=== PATIENT | female | born 1955 | race Hispanic/Latino ===

== ENCOUNTER 2020-11-17 10:17 | Inpatient (IN) | payer MEDICARE ==
--- NOTE | 2020-11-17 11:27 | Emergency Department Report ---
ED General Adult HPI - General Chief complaint: Chest Pain Stated complaint: CHESTPAIN Time Seen by Provider: 11/17/20 10:38 Source: EMS Mode of arrival: Wheelchair Limitations: No Limitations - History of Present Illness Initial comments: Patient presents with chest pain. She states that she was at dialysis when the chest pain started. It is described as a heaviness "like an elephant sitting on her chest." She has heart disease. She has renal failure. She was last cathed with a bypass at [facility]. She still sees cardiology, but has not required repeat intervention. There is no recent history of travel or trauma. She states that she does feel dyspneic. She has been nauseous. She has had pain like this before when her heart has "acted up." There is no pain or swelling in the legs out of the ordinary. They cut her dialysis treatment short because of the pain itself. This does seem to be worse with exertion. It is not pleuritic in nature. - Related Data Home Medications Medication Instructions Recorded Confirmed Last Taken Aspirin [Aspirin BABY CHEW TAB] 162 mg PO QDAY 12/27/15 12/27/15 Unknown AtorvaSTATin [Lipitor] 20 mg PO QHS 12/27/15 12/27/15 Unknown Cetirizine HCl [All Day Allergy] 10 mg PO QDAY 12/27/15 12/27/15 Unknown Etanercept [Enbrel] 50 mg SQ QWEEK 12/27/15 12/27/15 Unknown Glucosam/Chondr/Collagn/Hyalur 1 each PO QDAY 12/27/15 12/27/15 Unknown [Glucosamine & Chondroitin Cap] Insulin Aspart Prot/Aspart(Nf) 0 units SQ ACHS 12/27/15 12/27/15 Unknown [NovoLOG Mix 70/30 VIAL] Insulin Glargine [Lantus VIAL] 20 units SQ QHS 12/27/15 12/27/15 Unknown Mirtazapine [Remeron 15mg TAB] 15 mg PO QHS 12/27/15 12/27/15 Unknown Multivitamin Tab [Multiple Vitamin 1 each PO QDAY 12/27/15 12/27/15 Unknown TAB (Theragran)] [place]-3S/Dha/Epa/Fish Oil [Fish 1 each PO QDAY 12/27/15 12/27/15 Unknown Oil 1,200 mg Softgel] Omeprazole 40 mg PO QDAY 12/27/15 12/27/15 Unknown Potassium Chloride [K-Dur] 10 meq PO Q48HR 12/27/15 12/27/15 Unknown Rifaximin [Xifaxan] 1,100 mg PO QDAY 12/27/15 12/27/15 Unknown Spironolactone [Aldactone] 50 mg PO BID 12/27/15 12/27/15 Unknown Torsemide [Demadex] 20 mg PO QDAY 12/27/15 12/27/15 Unknown amLODIPine 10 mg PO DAILY 12/27/15 12/27/15 Unknown carvediloL [Coreg] 12.5 mg PO BID 12/27/15 12/27/15 Unknown hydrALAZINE [Apresoline TAB] 50 mg PO QDAY 12/27/15 12/27/15 Unknown Previous Rx's Medication Instructions Recorded Last Taken Type Gabapentin 300 mg PO QPM #30 cap 12/30/15 Unknown Rx Allergies Allergy/AdvReac Type Severity Reaction Status Date / Time codeine Allergy Hives Verified 11/17/20 10:33 ED Review of Systems ROS: Stated complaint: CHESTPAIN Other details as noted in HPI Comment: All other systems reviewed and negative Constitutional: denies: fever Eyes: denies: eye pain ENT: denies: throat pain Respiratory: denies: cough Cardiovascular: as per HPI Endocrine: denies: unexplained weight loss Gastrointestinal: nausea. denies: abdominal pain Musculoskeletal: denies: back pain Skin: denies: rash Neurological: denies: headache Hematological/Lymphatic: denies: easy bruising ED Past Medical Hx - Past Medical History Hx Hypertension: Yes Hx Congestive Heart Failure: Yes Hx Diabetes: Yes Hx Renal Disease: Yes Hx Asthma: No Hx COPD: No - Surgical History Hx Coronary Stent: Yes Hx Open Heart Surgery: Yes Additional Surgical History: Back surgery - Family History Family history: hypertension - Social History Smoking Status: Never Smoker - Medications Home Medications: Home Medications Medication Instructions Recorded Confirmed Last Taken Type Aspirin [Aspirin BABY CHEW TAB] 162 mg PO QDAY 12/27/15 12/27/15 Unknown History AtorvaSTATin [Lipitor] 20 mg PO QHS 12/27/15 12/27/15 Unknown History Cetirizine HCl [All Day Allergy] 10 mg PO QDAY 12/27/15 12/27/15 Unknown History Etanercept [Enbrel] 50 mg SQ QWEEK 12/27/15 12/27/15 Unknown History Glucosam/Chondr/Collagn/Hyalur 1 each PO QDAY 12/27/15 12/27/15 Unknown History [Glucosamine & Chondroitin Cap] Insulin Aspart Prot/Aspart(Nf) 0 units SQ ACHS 12/27/15 12/27/15 Unknown History [NovoLOG Mix 70/30 VIAL] Insulin Glargine [Lantus VIAL] 20 units SQ QHS 12/27/15 12/27/15 Unknown History Mirtazapine [Remeron 15mg TAB] 15 mg PO QHS 12/27/15 12/27/15 Unknown History Multivitamin Tab [Multiple Vitamin 1 each PO QDAY 12/27/15 12/27/15 Unknown History TAB (Theragran)] [place]-3S/Dha/Epa/Fish Oil [Fish 1 each PO QDAY 12/27/15 12/27/15 Unknown History Oil 1,200 mg Softgel] Omeprazole 40 mg PO QDAY 12/27/15 12/27/15 Unknown History Potassium Chloride [K-Dur] 10 meq PO Q48HR 12/27/15 12/27/15 Unknown History Rifaximin [Xifaxan] 1,100 mg PO QDAY 12/27/15 12/27/15 Unknown History Spironolactone [Aldactone] 50 mg PO BID 12/27/15 12/27/15 Unknown History Torsemide [Demadex] 20 mg PO QDAY 12/27/15 12/27/15 Unknown History amLODIPine 10 mg PO DAILY 12/27/15 12/27/15 Unknown History carvediloL [Coreg] 12.5 mg PO BID 12/27/15 12/27/15 Unknown History hydrALAZINE [Apresoline TAB] 50 mg PO QDAY 12/27/15 12/27/15 Unknown History Gabapentin 300 mg PO QPM #30 cap 12/30/15 Unknown Rx ED Physical Exam - General Limitations: No Limitations, Other ( Pulse ox is noted to normal at 90%. She is not hypoxic.) General appearance: alert, in no apparent distress, anxious, obese - Head Head exam: Present: atraumatic, normocephalic, normal inspection - Eye Eye exam: Present: normal appearance, EOMI. Absent: scleral icterus - ENT ENT exam: Present: normal exam, normal orophraynx, normal external ear exam - Neck Neck exam: Present: normal inspection. Absent: meningismus - Respiratory Respiratory exam: Present: rales ( Bilaterally). Absent: respiratory distress - Cardiovascular Cardiovascular Exam: Present: regular rate, normal rhythm - GI/Abdominal GI/Abdominal exam: Present: soft. Absent: tenderness - Extremities Exam Extremities exam: Present: normal capillary refill. Absent: pedal edema - Back Exam Back exam: Absent: CVA tenderness (R), CVA tenderness (L) - Neurological Exam Neurological exam: Present: alert, oriented X3. Absent: motor sensory deficit - Psychiatric Psychiatric exam: Present: normal affect, normal mood - Skin Skin exam: Present: warm, dry - Other Other exam information: patient has a dialysis catheter in the right anterior chest. ED Course Vital Signs 11/17/20 11/17/20 11/17/20 10:31 11:51 11:52 Temperature 98.2 F Pulse Rate 76 81 Respiratory 18 20 Rate Blood Pressure 148/52 147/58 [Right] O2 Sat by Pulse 98 100 100 Oximetry - Reevaluation(s) Reevaluation #1: 11/17/20 11:27 Labs and x-ray were ordered. Medications were ordered. Reevaluation #2: 11/17/20 12:58 Case was discussed with Dr. Reno and Dr. Chilel. Admission was placed. Patient does not have evidence of STEMI. She does have an elevated troponin. Given her renal function, this could be baseline but we do not have old labs to know. She is also pancytopenic. ED Medical Decision Making - Lab Data Result diagrams: 11/17/20 11:54 11/17/20 11:54 - EKG Data -: EKG Interpreted by Me EKG shows normal: sinus rhythm Rate: normal - EKG Data When compared to previous EKG there are: previous EKG unavailable 11/17/20 12:58 Patient has normal intervals. She does have T wave inversions in 1 and aVL with poor R wave progression. I believe these are old, but I do not have an old EKG for comparison. QRS and QTc are normal. - Radiology Data Radiology results: report reviewed - Medical Decision Making Patient present with chest pain shortness of breath. She was found to have an elevated troponin and elevated BNP. We do not have all labs. She does have pancytopenia. I suspect some of these lab values are chronic in nature. Regardless, she has chest pain with shortness of breath and an elevated troponin. She will be admitted for further observation and management. She does not appear to be septic or toxic. There is no clinical evidence that would suggest pneumonia or pneumothorax. She does not have a fever or cough or myalgias that would suggest coronavirus. Critical Care Time: No Critical care attestation.: If time is entered above; I have spent that time in minutes in the direct care of this critically ill patient, excluding procedure time. ED Disposition Clinical Impression: Substernal chest pain, ESRD (end stage renal disease) on dialysis, Pancytopenia, Elevated troponin Disposition: 09 ADMITTED INPATIENT Is pt being admited?: Yes Does the pt Need Aspirin: No Condition: Stable Instructions: Nonspecific Chest Pain, Adult
[2020-11-17] MEDS ORDERED: NITROGLYCERIN 0.4 MG TAB SUBL SL PRN (11:28)
[2020-11-17] MEDS ORDERED: ASPIRIN 81 MG TAB CHEW PO ONE (11:28)
[2020-11-17] MEDS ORDERED: ONDANSETRON 4 MG/2 ML INJ IV ONE (11:30)
[2020-11-17] MEDS ORDERED: ONDANSETRON 4 MG/2 ML INJ ONE (11:30)
[2020-11-17 12:17] LABS: Mean Corpuscular HGB Conc 35 % (30-34); Mean Corpuscular Volume 101 fl (79-97); Red Blood Count 1.98 M/mm3 (3.65-5.03); Red Cell Distribution Width 15.6 % (13.2-15.2)
[2020-11-17 12:24] LABS: Calcium 8.6 mg/dL (8.4-10.2)
[2020-11-17 12:29] LABS: Albumin 3.4 g/dL (3.9-5); Bilirubin,Direct 0.2 mg/dL (0-0.2)
[2020-11-17 12:38] LABS: Platelet Count 65 K/mm3 (140-440)
--- NOTE | 2020-11-17 12:55 | XRay Report ---
CHEST 2 VIEWS INDICATION / CLINICAL INFORMATION: pain. COMPARISON: 12/27/15 FINDINGS: SUPPORT DEVICES: Right PermCath projects over the right atrium. HEART / MEDIASTINUM: Stable. Median sternotomy wires are unchanged. LUNGS / PLEURA: No significant pulmonary or pleural abnormality. No pneumothorax. ADDITIONAL FINDINGS: No significant additional findings. IMPRESSION: 1. No acute findings. Signer Name: Gonzalez Ross MD Signed: 11/17/2020 12:50 PM Workstation Name: [id number]
[2020-11-17 13:27] LABS: Chol/HDL Ratio 6.03 %
--- NOTE | 2020-11-17 13:28 | Consultation ---
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 Pain started during dialysis. Pt describes pain as sub-sternal pressure radiating across both the left and right sides of her chest anteriorly. Pain also radiates to her left shoulder at times. No aggravating factors. Minimal relief noted with SL NTG. No additional relieving factors. Pt also reports associated SOB, dizziness, and nausea. No cough or recent fever/chills. Pt has been vaccinated against COVID-19 (received both doses of [place] vaccine). Pt has chronically elevated troponins in the setting of ESRD, ranging from 0.2-0.5 on outpatient labs. ECG reveals no acute ischemic changes. Of note, pt was seen at [facility] for chest pain and discharged 11/15/2020 with a new prescription for Ranexa, as well as Case Mgmt assistance with obtaining meds from a financial perspective. It is unclear whether or not she has started taking Ranexa. Recent cardiac workup as follows. Echo 03/04/2020 - EF 55-60%, grade 2 diastolic dysfxn. LHC 07/20/2020 - patent LM, 60% prox LAD, 100% mid LAD stent, patent LUIS-LAD less than 2mm, patent prox Cfx, 80% prox OM1 small caliber, 100% mid Cfx, patent SVG- OM feeding small caliber OM2, 100% prox RCA stent, patent SVG-PDA feeding small patent PDA and PLV, normal LV fxn. Lexiscan stress MPI 11/2019 - moderate size predominantly fixed apical defect consistent with prior myocardial infarction, no evidence of a significant degree of reversible ischemia. Past History Past Medical History: CAD, diabetes, dialysis, ESRD, heart failure, hypertension, liver disease, pulmonary embolism, stroke Past Surgical History: CABG, PTCA Social history: denies: smoking, alcohol abuse Family history: CAD, diabetes, hypertension, stroke Medications and Allergies Allergies Allergy/AdvReac Type Severity Reaction Status Date / Time codeine Allergy Hives Verified 11/17/20 10:33 Home Medications Medication Instructions Recorded Confirmed Last Taken Type Aspirin [Aspirin BABY CHEW TAB] 162 mg PO QDAY 12/27/15 12/27/15 Unknown History AtorvaSTATin [Lipitor] 20 mg PO QHS 12/27/15 12/27/15 Unknown History Cetirizine HCl [All Day Allergy] 10 mg PO QDAY 12/27/15 12/27/15 Unknown History Etanercept [Enbrel] 50 mg SQ QWEEK 12/27/15 12/27/15 Unknown History Glucosam/Chondr/Collagn/Hyalur 1 each PO QDAY 12/27/15 12/27/15 Unknown History [Glucosamine & Chondroitin Cap] Insulin Aspart Prot/Aspart(Nf) 0 units SQ ACHS 12/27/15 12/27/15 Unknown History [NovoLOG Mix 70/30 VIAL] Insulin Glargine [Lantus VIAL] 20 units SQ QHS 12/27/15 12/27/15 Unknown History Mirtazapine [Remeron 15mg TAB] 15 mg PO QHS 12/27/15 12/27/15 Unknown History Multivitamin Tab [Multiple Vitamin 1 each PO QDAY 12/27/15 12/27/15 Unknown History TAB (Theragran)] [place]-3S/Dha/Epa/Fish Oil [Fish 1 each PO QDAY 12/27/15 12/27/15 Unknown History Oil 1,200 mg Softgel] Omeprazole 40 mg PO QDAY 12/27/15 12/27/15 Unknown History Potassium Chloride [K-Dur] 10 meq PO Q48HR 12/27/15 12/27/15 Unknown History Rifaximin [Xifaxan] 1,100 mg PO QDAY 12/27/15 12/27/15 Unknown History Spironolactone [Aldactone] 50 mg PO BID 12/27/15 12/27/15 Unknown History Torsemide [Demadex] 20 mg PO QDAY 12/27/15 12/27/15 Unknown History amLODIPine 10 mg PO DAILY 12/27/15 12/27/15 Unknown History carvediloL [Coreg] 12.5 mg PO BID 12/27/15 12/27/15 Unknown History hydrALAZINE [Apresoline TAB] 50 mg PO QDAY 12/27/15 12/27/15 Unknown History Gabapentin 300 mg PO QPM #30 cap 12/30/15 Unknown Rx Active Meds: Active Medications Nitroglycerin (Nitroglycerin 0.4 Mg Tab Subl) 0.4 mg SL .Q5MIN PRN PRN Reason: Chest Pain Last Admin: 11/17/20 11:49 Dose: 0.4 mg Documented by: Review of Systems Constitutional: no fever, no chills Ears, nose, mouth and throat: no nasal congestion, no sore throat Cardiovascular: chest pain, shortness of breath, no palpitations, no edema, no syncope, no lightheadedness, no claudication Respiratory: shortness of breath, no cough Gastrointestinal: nausea, no abdominal pain, no vomiting Genitourinary Female: no pelvic pain, no flank pain, no dysuria Musculoskeletal: no neck stiffness, no neck pain Integumentary: no rash, no wounds Neurological: other (dizziness), no head injury, no paralysis, no weakness, no numbness, no tingling, no seizures, no syncope, no vertigo, no headaches Endocrine: no cold intolerance, no heat intolerance Hematologic/Lymphatic: no easy bruising, no easy bleeding Allergic/Immunologic: no anaphylaxis Physical Examination Last Vital Signs Temp 98.2 F 11/17/20 10:31 Pulse 68 11/17/20 14:12 Resp 19 11/17/20 14:12 BP 136/55 11/17/20 14:12 Pulse Ox 100 11/17/20 14:12 General appearance: no acute distress HEENT: Positive: EOMI, Normocephaly, Mucus Membranes Moist Neck: Positive: neck supple, trachea midline. Negative: JVD/HJR Cardiac: Positive: Reg Rate and Rhythm, S1/S2. Negative: Audible Murmur Lungs: Positive: Decreased Breath Sounds Neuro: Positive: Grossly Intact Abdomen: Positive: Soft. Negative: Tender Skin: Negative: Rash Musculoskeletal: No Pain Extremities: Present: upper extr. pulses, lower extr. pulses. Absent: edema Results 11/17/20 11:54 11/17/20 11:54 Cardiac Enzymes 11/17/20 Range/Units 11:54 AST 23 (5-40) units/L CBC 11/17/20 Range/Units 11:54 WBC 2.2 L (4.5-11.0) K/mm3 RBC 1.98 L (3.65-5.03) M/mm3 Hgb 7.0 L (10.1-14.3) gm/dl Hct 20.0 L (30.3-42.9) % Plt Count 65 L (140-440) K/mm3 Comprehensive Metabolic Panel 11/17/20 11/17/20 Range/Units 11:54 11:54 Sodium 137 (137-145) mmol/L Potassium 4.1 (3.6-5.0) mmol/L Chloride 95.4 L (98-107) mmol/L Carbon Dioxide 28 (22-30) mmol/L BUN 27 H (7-17) mg/dL Creatinine 3.5 H (0.6-1.2) mg/dL Glucose 200 H (65-100) mg/dL Calcium 8.6 (8.4-10.2) mg/dL Direct Bilirubin 0.2 (0-0.2) mg/dL Indirect Bilirubin 0.5 mg/dL AST 23 (5-40) units/L ALT 14 (7-56) units/L Alkaline Phosphatase 149 H (35-129) units/L Total Protein 7.0 (6.3-8.2) g/dL Albumin 3.4 L (3.9-5) g/dL - Imaging and Cardiology Echo: report reviewed (03/04/2020 - EF 55-60%, grade 2 diastolic dysfxn) Cardiac cath: report reviewed (07/20/2020 revealed patent LM, 60% prox LAD, 100% mid LAD stent, patent LUIS-LAD less than 2mm, patent prox Cfx, 80% prox OM1 small caliber, 100% mid Cfx, patent SVG-OM feeding small caliber OM2, 100% prox RCA stent, patent SVG-PDA feeding small patent PDA and PLV, normal LV fxn) EKG: report reviewed, image reviewed - EKG Interpretation EKG: no acute changes EKG interpretations - EKG Sinus rhythms and dysrhythmias: sinus rhythm Repolarization changes or abnormalities: nonspecific abnormality, ST segment, and/or T wave Assessment and Plan Chest Pain / NSTEMI -Recent LHC at [facility] 07/20/2020 revealed patent LM, 60% prox LAD, 100% mid LAD stent, patent LUIS-LAD less than 2mm, patent prox Cfx, 80% prox OM1 small caliber, 100% mid Cfx, patent SVG-OM feeding small caliber OM2, 100% prox RCA stent, patent SVG-PDA feeding small patent PDA and PLV, normal LV fxn -Trend cardiac enzymes -No heparin gtt due to chronic thrombocytopenia -Conservative medical mgmt recommended -Resume daily bASA -Not on statin due to liver disease -Resume Coreg and increase to 6.25mg BID as BP permits -Resume Imdur 60mg daily -Resume Ranexa 500mg BID (may increase if needed) CAD s/p CABG x 3 in 2009, PCI in 2008 -Daily bASA -Not on statin due to liver disease -Continue BB H/o Provoked PE (02/2020) -S/p biliary stent, was taken off Eliquis 06/09/2020 given chronic thrombocytopenia and liver disease -CTA chest 05/27/2020 @ [facility], [facility] revealed resolution of PE ESRD on HD -Volume optimization via HD Chronic HFpEF HTN -BP stable DM2 -Mgmt per Primary Liver Cirrhosis // YOUSIF -S/p TIPS 2013 Chronic Pancytopenia H/o MDS -S/p chemo 2015 H/o CVA (2016) PFO -Via [facility] 06/2020 H/o MV Endocarditis with Septic Emboli (2017) H/o Subclavian Steal Syndrome Chronically Prolonged QTc -On Remeron as an outpatient -501ms on ECG this admission (no change from previous) Pt seen in conjunction with Dr. Puckett, who agrees with the assessment and plan of care. - Patient Problems (1) Chest pain Current Visit: Yes Status: Acute (2) NSTEMI (non-ST elevated myocardial infarction) Current Visit: Yes Status: Acute (3) CAD (coronary artery disease) Current Visit: Yes Status: Chronic Qualifiers: Coronary Disease-Associated Artery/Lesion type: [place] artery [place] vs. transplanted heart: [place] heart (4) S/P CABG x 3 Current Visit: Yes Status: Chronic (5) Stented coronary artery Current Visit: Yes Status: Chronic (6) ESRD on hemodialysis Current Visit: Yes Status: Chronic (7) Hypertension Current Visit: Yes Status: Chronic Qualifiers: Hypertension type: primary hypertension Qualified Code(s): I10 - Essential (primary) hypertension (8) DM2 (diabetes mellitus, type 2) Current Visit: Yes Status: Chronic (9) Liver cirrhosis Current Visit: Yes Status: Chronic (10) Pancytopenia Current Visit: Yes Status: Chronic (11) History of pulmonary embolism Current Visit: Yes Status: Chronic (12) H/O: CVA (cerebrovascular accident) Current Visit: Yes Status: Chronic
--- NOTE | 2020-11-17 14:39 | History and Physical Report ---
History of Present Illness Chief complaint: My chest hurts History of present illness: 64 YO Female with CVA on Antiplatelet therapy, ESRD on HD(T,R,Sa), Cirrhosis, Chronic Thrombocytopenia, CAD S/P CABG, HTN, PE not taking therapeutic anticoagulation, DM, Obesity Hypoventilation Syndrome, HLD presents to ED for evaluation. Patient reports "my chest hurts". Patient states that she experienced a sudden onset of chest pain while at dialysis. Patient pain is 10/10, constant, crushing in nature, feels like "an elephant sitting on my chest", associated with shortness of breath. EMS was notified and upon arrival the patient was found to be in distress and subsequently transported to [facility] for further care and evaluation of the aforementioned symptoms. The patient was seen and evaluated in the emergency department. All lab and imaging studies reviewed. Patient found to have clinical symptoms as well as lab findings consistent with non-ST elevation IA, angina at rest, diastolic congestive heart failure, acute kidney injury. Cardiology team consulted in ED. Patient admitted to telemetry and initiated on ACS protocol. Patient denies fever, chills, palpitation, productive cough, skin rash, recent ill contacts, or known exposure to COVID-19. Patient has been fully vaccinated against COVID-19. Prior admission on 12/27/2015 reviewed. All medication listed at time of admission has been reconciled. Advanced care planning conducted in ED. Past History Past Medical History: CAD, diabetes, dialysis, ESRD, heart failure, hypertension, liver disease, pulmonary embolism, stroke Past Surgical History: CABG, PTCA Social history: denies: smoking, alcohol abuse Family history: CAD, diabetes, hypertension, stroke Medications and Allergies Allergies Allergy/AdvReac Type Severity Reaction Status Date / Time codeine Allergy Hives Verified 11/17/20 10:33 Home Medications Medication Instructions Recorded Confirmed Last Taken Type Aspirin [Aspirin BABY CHEW TAB] 162 mg PO QDAY 12/27/15 12/27/15 Unknown History AtorvaSTATin [Lipitor] 20 mg PO QHS 12/27/15 12/27/15 Unknown History Cetirizine HCl [All Day Allergy] 10 mg PO QDAY 12/27/15 12/27/15 Unknown History Etanercept [Enbrel] 50 mg SQ QWEEK 12/27/15 12/27/15 Unknown History Glucosam/Chondr/Collagn/Hyalur 1 each PO QDAY 12/27/15 12/27/15 Unknown History [Glucosamine & Chondroitin Cap] Insulin Aspart Prot/Aspart(Nf) 0 units SQ ACHS 12/27/15 12/27/15 Unknown History [NovoLOG Mix 70/30 VIAL] Insulin Glargine [Lantus VIAL] 20 units SQ QHS 12/27/15 12/27/15 Unknown History Mirtazapine [Remeron 15mg TAB] 15 mg PO QHS 12/27/15 12/27/15 Unknown History Multivitamin Tab [Multiple Vitamin 1 each PO QDAY 12/27/15 12/27/15 Unknown History TAB (Theragran)] [place]-3S/Dha/Epa/Fish Oil [Fish 1 each PO QDAY 12/27/15 12/27/15 Unknown History Oil 1,200 mg Softgel] Omeprazole 40 mg PO QDAY 12/27/15 12/27/15 Unknown History Potassium Chloride [K-Dur] 10 meq PO Q48HR 12/27/15 12/27/15 Unknown History Rifaximin [Xifaxan] 1,100 mg PO QDAY 12/27/15 12/27/15 Unknown History Spironolactone [Aldactone] 50 mg PO BID 12/27/15 12/27/15 Unknown History Torsemide [Demadex] 20 mg PO QDAY 12/27/15 12/27/15 Unknown History amLODIPine 10 mg PO DAILY 12/27/15 12/27/15 Unknown History carvediloL [Coreg] 12.5 mg PO BID 12/27/15 12/27/15 Unknown History hydrALAZINE [Apresoline TAB] 50 mg PO QDAY 12/27/15 12/27/15 Unknown History Gabapentin 300 mg PO QPM #30 cap 12/30/15 Unknown Rx Active Meds: Active Medications Nitroglycerin (Nitroglycerin 0.4 Mg Tab Subl) 0.4 mg SL .Q5MIN PRN PRN Reason: Chest Pain Last Admin: 11/17/20 11:49 Dose: 0.4 mg Documented by: Review of Systems Constitutional: no weight loss, no weight gain, no fever, no chills Ears, nose, mouth and throat: no ear pain, no ear discharge, no tinnitis, no decreased hearing, no nasal congestion Breasts: no change in shape, no swelling, no mass Cardiovascular: chest pain, shortness of breath, decreased exercise tolerance, no edema, no syncope Respiratory: no cough, no cough with sputum, no hemoptysis Gastrointestinal: no nausea, no vomiting, no diarrhea, no constipation Genitourinary Female: no pelvic pain, no flank pain, no dysuria, no urinary frequency, no urgency Rectal: no pain, no incontinence, no bleeding Musculoskeletal: no neck stiffness, no neck pain, no shooting arm pain, no arm numbness/tingling, no low back pain, no shooting leg pain Integumentary: no rash, no pruritis, no redness, no sores, no wounds Neurological: no head injury, no transient paralysis, no paralysis, no parathesias, no tingling, no seizures, no syncope Psychiatric: no anxiety, no change in sleep habits, no sleep disturbances, no insomnia, no hypersomnia Endocrine: no cold intolerance, no heat intolerance, no polyphagia, no polydipsia, no polyuria, no nocturia, no excessive sweating Hematologic/Lymphatic: no easy bruising, no easy bleeding, no lymphadenopathy Allergic/Immunologic: no allergic rhinitis, no wheezing, no persistent infections, no anaphylaxis Exam - Constitutional Vitals: Temp Pulse Resp BP Pulse Ox 98.2 F 68 19 136/55 100 11/17/20 10:31 11/17/20 14:12 11/17/20 14:12 11/17/20 14:12 11/17/20 14:12 General appearance: Present: mild distress, obese - EENT Eyes: Present: PERRL ENT: hearing intact, clear oral mucosa - Neck Neck: Present: supple, normal ROM - Respiratory Respiratory effort: normal Respiratory: bilateral: CTA - Cardiovascular Heart Sounds: Present: S1 & S2. Absent: rub, click - Extremities Extremities: pulses symmetrical, No edema Peripheral Pulses: within normal limits - Abdominal General gastrointestinal: Present: soft, non-tender, non-distended, normal bowel sounds Female genitourinary: Present: normal - Integumentary Integumentary: Present: clear, warm, dry - Musculoskeletal Musculoskeletal: generalized weakness - Psychiatric Psychiatric: appropriate mood/affect, intact judgment & insight - Neurologic Neurologic: CNII-XII intact, moves all extremities HEART Score - HEART Score Troponin: Troponin T 0.236 ng/mL (0.00-0.029) H* 11/17/20 11:54 Results - Labs CBC & Chem 7: 11/17/20 11:54 11/17/20 11:54 Labs: Abnormal lab results 11/17/20 11/17/20 11/17/20 Range/Units 11:54 11:54 11:54 WBC 2.2 L (4.5-11.0) K/mm3 RBC 1.98 L (3.65-5.03) M/mm3 Hgb 7.0 L (10.1-14.3) gm/dl Hct 20.0 L (30.3-42.9) % MCV 101 H (79-97) fl MCH 36 H (28-32) pg MCHC 35 H (30-34) % RDW 15.6 H (13.2-15.2) % Plt Count 65 L (140-440) K/mm3 Chloride 95.4 L (98-107) mmol/L BUN 27 H (7-17) mg/dL Creatinine 3.5 H (0.6-1.2) mg/dL Glucose 200 H (65-100) mg/dL Alkaline Phosphatase 149 H (35-129) units/L Troponin T 0.236 H* (0.00-0.029) ng/mL NT-Pro-B Natriuret Pep 19266 H (0-900) pg/mL Albumin 3.4 L (3.9-5) g/dL Triglycerides 166 H (2-149) mg/dL HDL Cholesterol 32 L (40-59) mg/dL Assessment and Plan - Patient Problems (1) NSTEMI (non-ST elevated myocardial infarction) Current Visit: Yes Status: Acute Plan to address problem: ACS protocol: Serial cardiac enzymes, EKG, telemetry monitoring, cardiology team consulted, further care and evaluation as per cardiology team. (2) Angina at rest Current Visit: Yes Status: Acute Plan to address problem: Chest pain protocol: Serial cardiac enzymes, EKG, will monitor telemetry, further care and evaluation as per cardiology team. (3) ESRD on hemodialysis Current Visit: Yes Status: Chronic Plan to address problem: Nephrology team consulted in ED, dialysis as per renal team. (4) Diastolic CHF Current Visit: Yes Status: Acute Qualifiers: Heart failure chronicity: acute Qualified Code(s): I50.31 - Acute diastolic (congestive) heart failure Plan to address problem: Strict I/O, monitor urine output every shift, daily weight, afterload reduction, blood pressure control, supplemental oxygen, pulse oximetry, cardiology team consulted. (5) DVT prophylaxis Current Visit: Yes Status: Acute Plan to address problem: SCDs bilateral lower extremities while in bed (6) Advance care planning Current Visit: Yes Status: Acute Plan to address problem: Disease education conducted, care plan discussed, diagnosis discussed, prognosis discussed, patient is full code, patient knowledges understanding and agreement with care plan, +30 minutes.
[2020-11-17] MEDS ORDERED: ALBUTEROL 2.5 MG/3 ML NEBU IH PRN (14:40)
[2020-11-17] MEDS ORDERED: ONDANSETRON 4 MG/2 ML INJ IV PRN (14:40)
[2020-11-17] MEDS ORDERED: traMADol 50 MG TAB PO PRN (14:40)
[2020-11-17] MEDS ORDERED: ACETAMINOPHEN 325 MG TAB PO PRN ×2 (14:40)
[2020-11-17] MEDS ORDERED: HYDROmorphone 1 MG/1 ML INJ IV PRN (14:40)
[2020-11-17] MEDS: GABAPENTIN 300 MG CAP PO SCH (18:30)
[2020-11-17] MEDS ORDERED: DEXTROSE 50% IN WATER (25GM) 50 ML SYRINGE IV PRN (19:10)
[2020-11-17] MEDS ORDERED: carvediloL 6.25 MG TAB PO SCH (22:00)
[2020-11-17] MEDS: RANOLAZINE ER 500 MG TAB 12HR PO SCH (23:42)
[2020-11-18] MEDS: INSULIN LISPRO 100 UNIT/ML SUB-Q SCH ×4 (00:30→17:44)
[2020-11-18] MEDS: oxyCODONE /ACETAMINOPHEN 5-325MG TAB PO PRN ×2 (03:32→12:51)
[2020-11-18] MEDS: carvediloL 12.5 MG TAB PO SCH ×3 (03:41→22:09)
[2020-11-18] MEDS: SPIRONOLACTONE 50 MG TAB PO SCH ×3 (03:41→22:09)
[2020-11-18] MEDS: MIRTAZAPINE 15 MG TAB PO SCH ×2 (03:42→22:09)
[2020-11-18 06:24] LABS: Mean Corpuscular HGB Conc 35 % (30-34); Mean Corpuscular Volume 103 fl (79-97); Red Blood Count 1.74 M/mm3 (3.65-5.03); Red Cell Distribution Width 15.7 % (13.2-15.2)
[2020-11-18 06:30] LABS: Hemoglobin 6.2 gm/dl (10.1-14.3)
[2020-11-18 06:35] LABS: Hematocrit 17.9 % (30.3-42.9); Platelet Count 64 K/mm3 (140-440)
[2020-11-18 06:39] LABS: Calcium 8.5 mg/dL (8.4-10.2)
[2020-11-18 07:26] LABS: Total Cells Counted 100
[2020-11-18 07:27] LABS: Hypochromasia 2+; Platelet Estimate Consistent w Auto; Toxic Vacuolation 1+
[2020-11-18] MEDS: amLODIPine 10 MG TAB PO SCH (09:22)
[2020-11-18] MEDS: hydrALAZINE 25 MG TAB PO SCH (09:22)
[2020-11-18] MEDS ORDERED: NON-FORMULARY EACH (Torsemide [Demadex] 20 MG Tablet) PO SCH (10:00)
[2020-11-18] MEDS ORDERED: DHA PO SCH (10:00)
[2020-11-18] MEDS ORDERED: RIFAXIMIN 550 MG TAB PO SCH (10:00)
[2020-11-18] MEDS ORDERED: EPA PO SCH (10:00)
[2020-11-18] MEDS ORDERED: ASPIRIN 81 MG TAB CHEW PO SCH (10:00)
[2020-11-18] MEDS ORDERED: FISH OIL PO SCH (10:00)
[2020-11-18] MEDS ORDERED: NON-FORMULARY EACH (Omeprazole [Omeprazole] 40 MG Capsule.Dr) PO SCH (10:00)
[2020-11-18] MEDS ORDERED: SODIUM CHLORIDE 0.9% 500 ML 500 ML IV SCH (10:00)
[2020-11-18] MEDS ORDERED: [UNRECOGNIZED DRUG - REMARK] PO SCH (10:00)
[2020-11-18] MEDS ORDERED: [UNRECOGNIZED DRUG - OTHER] PO SCH (10:00)
[2020-11-18] MEDS ORDERED: OMEGA PO SCH (10:00)
--- NOTE | 2020-11-18 10:24 | Consultation ---
History of Present Illness - Reason for Consult Consult date: 11/18/20 end stage renal disease - History of Present Illness patient with ESRD on HD every TTS, was admitted yesterday for worsening chest pain and SOB, she was found to have elevated troponin and EKG changes consistent with NSTEMI. Cardiology was consulted and she was placed on [facility] protocol. Renal consult was requested for HG management while inpatient Past History Past Medical History: CAD, diabetes, dialysis, ESRD, heart failure, hypertension, liver disease, pulmonary embolism, stroke Past Surgical History: CABG, PTCA Social history: denies: smoking, alcohol abuse Family history: CAD, diabetes, hypertension, stroke Medications and Allergies Allergies Allergy/AdvReac Type Severity Reaction Status Date / Time codeine Allergy Hives Verified 11/17/20 10:33 Home Medications Medication Instructions Recorded Confirmed Last Taken Type Aspirin [Aspirin BABY CHEW TAB] 162 mg PO QDAY 12/27/15 12/27/15 Unknown History AtorvaSTATin [Lipitor] 20 mg PO QHS 12/27/15 12/27/15 Unknown History Cetirizine HCl [All Day Allergy] 10 mg PO QDAY 12/27/15 12/27/15 Unknown History Etanercept [Enbrel] 50 mg SQ QWEEK 12/27/15 12/27/15 Unknown History Glucosam/Chondr/Collagn/Hyalur 1 each PO QDAY 12/27/15 12/27/15 Unknown History [Glucosamine & Chondroitin Cap] Insulin Aspart Prot/Aspart(Nf) 0 units SQ ACHS 12/27/15 12/27/15 Unknown History [NovoLOG Mix 70/30 VIAL] Insulin Glargine [Lantus VIAL] 20 units SQ QHS 12/27/15 12/27/15 Unknown History Mirtazapine [Remeron 15mg TAB] 15 mg PO QHS 12/27/15 12/27/15 Unknown History Multivitamin Tab [Multiple Vitamin 1 each PO QDAY 12/27/15 12/27/15 Unknown History TAB (Theragran)] [place]-3S/Dha/Epa/Fish Oil [Fish 1 each PO QDAY 12/27/15 12/27/15 Unknown History Oil 1,200 mg Softgel] Omeprazole 40 mg PO QDAY 12/27/15 12/27/15 Unknown History Potassium Chloride [K-Dur] 10 meq PO Q48HR 12/27/15 12/27/15 Unknown History Rifaximin [Xifaxan] 1,100 mg PO QDAY 12/27/15 12/27/15 Unknown History Spironolactone [Aldactone] 50 mg PO BID 12/27/15 12/27/15 Unknown History Torsemide [Demadex] 20 mg PO QDAY 12/27/15 12/27/15 Unknown History amLODIPine 10 mg PO DAILY 12/27/15 12/27/15 Unknown History carvediloL [Coreg] 12.5 mg PO BID 12/27/15 12/27/15 Unknown History hydrALAZINE [Apresoline TAB] 50 mg PO QDAY 12/27/15 12/27/15 Unknown History Gabapentin 300 mg PO QPM #30 cap 12/30/15 Unknown Rx Active Meds: Active Medications Acetaminophen (Acetaminophen 325 Mg Tab) 650 mg PO Q4H PRN PRN Reason: Pain MILD(1-3)/Fever >100.5/SOLO Albuterol (Albuterol 2.5 Mg/3 Ml Nebu) 2.5 mg IH Q4HRT PRN PRN Reason: Shortness Of Breath Amlodipine Besylate (Amlodipine 10 Mg Tab) 10 mg PO DAILY [facility] Last Admin: 11/18/20 09:22 Dose: Not Given Documented by: Aspirin (Aspirin 81 Mg Tab Chew) 162 mg PO QDAY [facility] Atorvastatin Calcium (Atorvastatin 20 Mg Tab) 20 mg PO QHS [facility] Last Admin: 11/18/20 03:41 Dose: Not Given Documented by: Carvedilol (Carvedilol 12.5 Mg Tab) 12.5 mg PO BID [facility] Last Admin: 11/18/20 03:41 Dose: Not Given Documented by: Cetirizine HCl (Cetirizine 10 Mg Tab) 10 mg PO DAILY [facility] Dextrose (Dextrose 50% In Water (25gm) 50 Ml Syringe) 50 ml IV Q30MIN PRN; Protocol PRN Reason: Hypoglycemia Gabapentin (Gabapentin 300 Mg Cap) 300 mg PO QPM [facility] Last Admin: 11/17/20 18:30 Dose: 300 mg Documented by: Hydralazine HCl (Hydralazine 25 Mg Tab) 50 mg PO QDAY [facility] Last Admin: 11/18/20 09:22 Dose: Not Given Documented by: Hydromorphone HCl (Hydromorphone 1 Mg/1 Ml Inj) 0.5 mg IV Q23H PRN PRN Reason: Pain , Severe (7-10) Last Admin: 11/17/20 21:44 Dose: 0.5 mg Documented by: Sodium Chloride (Nacl 0.9% 500 Ml) 500 mls @ 0 mls/hr IV ONCE@1000 [facility] Stop: 11/18/20 19:00 Insulin Human Lispro (Insulin Lispro 100 Unit/Ml) 0 unit SUB-Q Q6HR [facility]; Protocol Last Admin: 11/18/20 09:21 Dose: Not Given Documented by: Isosorbide Mononitrate (Isosorbide Mononitrate Er 60 Mg Tab) 60 mg PO QDAY [facility] Last Admin: 11/17/20 18:30 Dose: 60 mg Documented by: Mirtazapine (Mirtazapine 15 Mg Tab) 15 mg PO QHS [facility] Last Admin: 11/18/20 03:42 Dose: Not Given Documented by: Multivitamins (Multivitamins ,Therapeutic Tab) 1 each PO QDAY [facility] Nitroglycerin (Nitroglycerin 0.4 Mg Tab Subl) 0.4 mg SL .Q5MIN PRN PRN Reason: Chest Pain Last Admin: 11/17/20 11:49 Dose: 0.4 mg Documented by: Ondansetron HCl (Ondansetron 4 Mg/2 Ml Inj) 4 mg IV Q8H PRN PRN Reason: Nausea And Vomiting Oxycodone/Acetaminophen (Oxycodone /Acetaminophen 5-325mg Tab) 1 tab PO Q16H PRN PRN Reason: Pain, Moderate (4-6) Last Admin: 11/18/20 03:32 Dose: 1 tab Documented by: Pantoprazole Sodium (Pantoprazole 40 Mg Tab) 40 mg PO DAILY [facility] Pneumococcal Polyvalent Vaccine (Pneumococcal 23 Valent 0.5 Ml Vial) 0.5 ml IM .ONCE ONE Stop: 11/18/20 12:01 Potassium Chloride (Potassium Chloride Er 10 Meq Tab) 10 meq PO Q48HR [facility] Ranolazine (Ranolazine Er 500 Mg Tab 12hr) 500 mg PO BID [facility] Last Admin: 11/17/20 23:42 Dose: 500 mg Documented by: Rifaximin (Rifaximin 550 Mg Tab) 1,100 mg PO QDAY [facility] Sodium Chloride (Sodium Chloride 0.9% 10 Ml Flush Syringe) 10 ml IV BID [facility] Last Admin: 11/18/20 03:43 Dose: 10 ml Documented by: Sodium Chloride (Sodium Chloride 0.9% 10 Ml Flush Syringe) 10 ml IV PRN PRN PRN Reason: LINE FLUSH Spironolactone (Spironolactone 50 Mg Tab) 50 mg PO BID [facility] Last Admin: 11/18/20 03:41 Dose: Not Given Documented by: Torsemide (Torsemide 10 Mg Tab) 20 mg PO QDAY [facility] Tramadol HCl (Tramadol 50 Mg Tab) 50 mg PO Q6H PRN PRN Reason: Pain, Moderate (4-6) Review of Systems All systems: negative (chest pain) Exam - Vital Signs Vital signs: Vital Signs Temp Pulse Resp BP Pulse Ox 98.2 F 76 18 148/52 98 11/17/20 10:31 11/17/20 10:31 11/17/20 10:31 11/17/20 10:31 11/17/20 10:31 Results - Lab Results 11/18/20 05:50 11/18/20 05:50 Most recent lab results Calcium 8.5 mg/dL (8.4-10.2) 11/18/20 05:50 Assessment and Plan (1) NSTEMI (non-ST elevated myocardial infarction) (2) Angina at rest (3) ESRD on hemodialysis (4) Diastolic CHF (5) DVT prophylaxis HD tomorrow for clearance and volume removal pt was consented for HD while inpatient will assess HD needs daily renally dose meds strict I&O daily weight
--- NOTE | 2020-11-18 10:31 | Consultation ---
History of Present Illness Consult date: 11/18/20 Consult reason: chest pain, elevated troponin History of present illness: The patient is a 64-year-old woman with end-stage renal disease on hemodialysis, and history of coronary artery disease. She states that 10 years ago she und erwent three-vessel coronary artery bypass, and follows up regularly with her pension manager who is at [facility]. A thallium stress test done a year ago at [facility] was negative per her account. She is admitted to the hospital at this time with complaints of chest pain which occurred at rest, and ostensibly during a dialysis treatment. She has had no exertional chest pain or fatigue in recent weeks. On presentation here there marked abnormalities with her hemogram. There is a severe pancytopenia with leukopenia WBC 2.2, severe anemia with a hematocrit as low as 17, and thrombocyt openia with a platelet count of 65,000. These measurements were respectively 7.3, 36.5, and 131,000 and 2016. Her creatinine is 5.4, consistent with her end-stage renal disease. In this milieu, troponin levels were at 0.25, unchanged on 3 serial measurements. EKG was normal sinus rhythm, left ventricle hypertrophy and repolarization abnormalities of LVH. Chest x-ray shows sternal wires consistent with prior thoracotomy, otherwise normal-sized cardiac silhouette and clear lungs. Past History Past Medical History: CAD, diabetes, dialysis, ESRD, heart failure, hypertension, liver disease, pulmonary embolism, stroke Past Surgical History: CABG, PTCA Social history: denies: smoking, alcohol abuse Family history: CAD, diabetes, hypertension, stroke Medications and Allergies Allergies Allergy/AdvReac Type Severity Reaction Status Date / Time codeine Allergy Hives Verified 11/17/20 10:33 Home Medications Medication Instructions Recorded Confirmed Last Taken Type Aspirin [Aspirin BABY CHEW TAB] 162 mg PO QDAY 12/27/15 12/27/15 Unknown History AtorvaSTATin [Lipitor] 20 mg PO QHS 12/27/15 12/27/15 Unknown History Cetirizine HCl [All Day Allergy] 10 mg PO QDAY 12/27/15 12/27/15 Unknown History Etanercept [Enbrel] 50 mg SQ QWEEK 12/27/15 12/27/15 Unknown History Glucosam/Chondr/Collagn/Hyalur 1 each PO QDAY 12/27/15 12/27/15 Unknown History [Glucosamine & Chondroitin Cap] Insulin Aspart Prot/Aspart(Nf) 0 units SQ ACHS 12/27/15 12/27/15 Unknown History [NovoLOG Mix 70/30 VIAL] Insulin Glargine [Lantus VIAL] 20 units SQ QHS 12/27/15 12/27/15 Unknown History Mirtazapine [Remeron 15mg TAB] 15 mg PO QHS 12/27/15 12/27/15 Unknown History Multivitamin Tab [Multiple Vitamin 1 each PO QDAY 12/27/15 12/27/15 Unknown History TAB (Theragran)] [place]-3S/Dha/Epa/Fish Oil [Fish 1 each PO QDAY 12/27/15 12/27/15 Unknown History Oil 1,200 mg Softgel] Omeprazole 40 mg PO QDAY 12/27/15 12/27/15 Unknown History Potassium Chloride [K-Dur] 10 meq PO Q48HR 12/27/15 12/27/15 Unknown History Rifaximin [Xifaxan] 1,100 mg PO QDAY 12/27/15 12/27/15 Unknown History Spironolactone [Aldactone] 50 mg PO BID 12/27/15 12/27/15 Unknown History Torsemide [Demadex] 20 mg PO QDAY 12/27/15 12/27/15 Unknown History amLODIPine 10 mg PO DAILY 12/27/15 12/27/15 Unknown History carvediloL [Coreg] 12.5 mg PO BID 12/27/15 12/27/15 Unknown History hydrALAZINE [Apresoline TAB] 50 mg PO QDAY 12/27/15 12/27/15 Unknown History Gabapentin 300 mg PO QPM #30 cap 12/30/15 Unknown Rx Active Meds: Active Medications Acetaminophen (Acetaminophen 325 Mg Tab) 650 mg PO Q4H PRN PRN Reason: Pain MILD(1-3)/Fever >100.5/SOLO Albuterol (Albuterol 2.5 Mg/3 Ml Nebu) 2.5 mg IH Q4HRT PRN PRN Reason: Shortness Of Breath Amlodipine Besylate (Amlodipine 10 Mg Tab) 10 mg PO DAILY [facility] Last Admin: 11/18/20 09:22 Dose: Not Given Documented by: Aspirin (Aspirin 81 Mg Tab Chew) 162 mg PO QDAY [facility] Atorvastatin Calcium (Atorvastatin 20 Mg Tab) 20 mg PO QHS [facility] Last Admin: 11/18/20 03:41 Dose: Not Given Documented by: Carvedilol (Carvedilol 12.5 Mg Tab) 12.5 mg PO BID [facility] Last Admin: 11/18/20 03:41 Dose: Not Given Documented by: Cetirizine HCl (Cetirizine 10 Mg Tab) 10 mg PO DAILY [facility] Dextrose (Dextrose 50% In Water (25gm) 50 Ml Syringe) 50 ml IV Q30MIN PRN; Protocol PRN Reason: Hypoglycemia Gabapentin (Gabapentin 300 Mg Cap) 300 mg PO QPM [facility] Last Admin: 11/17/20 18:30 Dose: 300 mg Documented by: Hydralazine HCl (Hydralazine 25 Mg Tab) 50 mg PO QDAY [facility] Last Admin: 11/18/20 09:22 Dose: Not Given Documented by: Hydromorphone HCl (Hydromorphone 1 Mg/1 Ml Inj) 0.5 mg IV Q23H PRN PRN Reason: Pain , Severe (7-10) Last Admin: 11/17/20 21:44 Dose: 0.5 mg Documented by: Sodium Chloride (Nacl 0.9% 500 Ml) 500 mls @ 0 mls/hr IV ONCE@1000 [facility] Stop: 11/18/20 19:00 Insulin Human Lispro (Insulin Lispro 100 Unit/Ml) 0 unit SUB-Q Q6HR [facility]; Protocol Last Admin: 11/18/20 09:21 Dose: Not Given Documented by: Isosorbide Mononitrate (Isosorbide Mononitrate Er 60 Mg Tab) 60 mg PO QDAY [facility] Last Admin: 11/17/20 18:30 Dose: 60 mg Documented by: Mirtazapine (Mirtazapine 15 Mg Tab) 15 mg PO QHS [facility] Last Admin: 11/18/20 03:42 Dose: Not Given Documented by: Multivitamins (Multivitamins ,Therapeutic Tab) 1 each PO QDAY [facility] Nitroglycerin (Nitroglycerin 0.4 Mg Tab Subl) 0.4 mg SL .Q5MIN PRN PRN Reason: Chest Pain Last Admin: 11/17/20 11:49 Dose: 0.4 mg Documented by: Ondansetron HCl (Ondansetron 4 Mg/2 Ml Inj) 4 mg IV Q8H PRN PRN Reason: Nausea And Vomiting Oxycodone/Acetaminophen (Oxycodone /Acetaminophen 5-325mg Tab) 1 tab PO Q16H PRN PRN Reason: Pain, Moderate (4-6) Last Admin: 11/18/20 03:32 Dose: 1 tab Documented by: Pantoprazole Sodium (Pantoprazole 40 Mg Tab) 40 mg PO DAILY [facility] Pneumococcal Polyvalent Vaccine (Pneumococcal 23 Valent 0.5 Ml Vial) 0.5 ml IM .ONCE ONE Stop: 11/18/20 12:01 Potassium Chloride (Potassium Chloride Er 10 Meq Tab) 10 meq PO Q48HR [facility] Ranolazine (Ranolazine Er 500 Mg Tab 12hr) 500 mg PO BID [facility] Last Admin: 11/17/20 23:42 Dose: 500 mg Documented by: Rifaximin (Rifaximin 550 Mg Tab) 1,100 mg PO QDAY [facility] Sodium Chloride (Sodium Chloride 0.9% 10 Ml Flush Syringe) 10 ml IV BID [facility] Last Admin: 11/18/20 03:43 Dose: 10 ml Documented by: Sodium Chloride (Sodium Chloride 0.9% 10 Ml Flush Syringe) 10 ml IV PRN PRN PRN Reason: LINE FLUSH Spironolactone (Spironolactone 50 Mg Tab) 50 mg PO BID [facility] Last Admin: 11/18/20 03:41 Dose: Not Given Documented by: Torsemide (Torsemide 10 Mg Tab) 20 mg PO QDAY [facility] Tramadol HCl (Tramadol 50 Mg Tab) 50 mg PO Q6H PRN PRN Reason: Pain, Moderate (4-6) Review of Systems Cardiovascular: chest pain, shortness of breath, no orthopnea, no palpitations, no rapid/irregular heart beat, no edema, no syncope, no lightheadedness Physical Examination Vital Signs Temp Pulse Resp BP Pulse Ox 98.2 F 76 18 148/52 98 11/17/20 10:31 11/17/20 10:31 11/17/20 10:31 11/17/20 10:31 11/17/20 10:31 General appearance: no acute distress HEENT: Positive: PERRL Neck: Positive: neck supple Cardiac: Positive: Reg Rate and Rhythm Lungs: Positive: clear to auscultation Neuro: Positive: Grossly Intact Abdomen: Positive: Soft Female genitourinary: deferred Skin: Positive: Clear Extremities: Absent: edema Results 11/18/20 05:50 11/18/20 05:50 Cardiac Enzymes 11/17/20 Range/Units 11:54 AST 23 (5-40) units/L Lipids 11/17/20 Range/Units 11:54 Triglycerides 166 H (2-149) mg/dL Cholesterol 193 (50-199) mg/dL HDL Cholesterol 32 L (40-59) mg/dL Cholesterol/HDL Ratio 6.03 % CBC 11/17/20 11/18/20 Range/Units 11:54 05:50 WBC 2.2 L 2.2 L (4.5-11.0) K/mm3 RBC 1.98 L 1.74 L (3.65-5.03) M/mm3 Hgb 7.0 L 6.2 L (10.1-14.3) gm/dl Hct 20.0 L 17.9 L* (30.3-42.9) % Plt Count 65 L 64 L (140-440) K/mm3 Comprehensive Metabolic Panel 11/17/20 11/17/20 11/18/20 Range/Units 11:54 11:54 05:50 Sodium 137 137 (137-145) mmol/L Potassium 4.1 3.9 (3.6-5.0) mmol/L Chloride 95.4 L 96.2 L (98-107) mmol/L Carbon Dioxide 28 31 H (22-30) mmol/L BUN 27 H 41 H (7-17) mg/dL Creatinine 3.5 H 5.4 H D (0.6-1.2) mg/dL Glucose 200 H 140 H (65-100) mg/dL Calcium 8.6 8.5 (8.4-10.2) mg/dL Direct Bilirubin 0.2 (0-0.2) mg/dL Indirect Bilirubin 0.5 mg/dL AST 23 (5-40) units/L ALT 14 (7-56) units/L Alkaline Phosphatase 149 H (35-129) units/L Total Protein 7.0 (6.3-8.2) g/dL Albumin 3.4 L (3.9-5) g/dL EKG interpretations - Telemetry EKG Rhythm: Sinus Rhythm (With left ventricular per trophy and repolarization abnormalities of LVH) Assessment and Plan - Patient Problems (1) Chest pain Current Visit: Yes Status: Acute Plan to address problem: Patient presented with chest pain, her symptoms are likely predominantly associated with her severe anemia and pancytopenia. We will defer to internal medicine and hematology for further evaluation and management of the patient's pancytopenia. The troponin measurements in this setting nonspecific, but it would be prudent to perform noninvasive myocardial perfusion imaging prior to discharge, after the anemia has been optimally worked up and corrected. We will request records from [facility] for recent left ventricular function assessment.
[2020-11-18] MEDS: ASPIRIN 81 MG TAB CHEW PO SCH (11:15)
[2020-11-18] MEDS: CETIRIZINE 10 MG TAB PO SCH (11:16)
[2020-11-18] MEDS: MULTIVITAMINS ,THERAPEUTIC TAB PO SCH (11:16)
[2020-11-18] MEDS: PANTOPRAZOLE 40 MG TAB PO SCH (11:16)
[2020-11-18] MEDS: RANOLAZINE ER 500 MG TAB 12HR PO SCH ×2 (11:16→22:08)
[2020-11-18] MEDS: TORSEMIDE 10 MG TAB PO SCH (11:17)
[2020-11-18] MEDS ORDERED: PNEUMOCOCCAL 23 Valent 0.5 ML VIAL IM ONE (12:00)
[2020-11-18] MEDS: RIFAXIMIN 550 MG TAB PO SCH ×2 (12:52→22:09)
--- NOTE | 2020-11-18 13:08 | Event Note ---
Date: 11/18/20 Further review of the patient's records show that she underwent a cardiac catheterization just 3 months ago at [place] that revealed patent bypass grafts x3 and normal left ventricular systolic function. In that setting, no further cardiac ischemic work-up is indicated, continue medical therapy for small vessel coronary artery disease, and continue work-up and management of the patient's severe pancytopenia. We also note that the patient is being followed by another cardiology group, [facility] heart specialists, we will sign off and defer further cardiac follow-up and management to the [facility] team.
--- NOTE | 2020-11-18 14:47 | Progress Note ---
Assessment and Plan Chest Pain / NSTEMI CAD s/p CABG x 3 in 2009, PCI in 2008 Chronic HFpEF HTN * Echo 03/04/2020 - EF 55-60%, grade 2 diastolic dysfxn * LHC at [facility] 07/20/2020 revealed patent LM, 60% prox LAD, 100% mid LAD stent, patent LUIS-LAD less than 2mm, patent prox Cfx, 80% prox OM1 small caliber, 100% mid Cfx, patent SVG-OM feeding small caliber OM2, 100% prox RCA stent, patent SVG-PDA feeding small patent PDA and PLV, normal LV fxn * Lexiscan stress MPI 11/2019 - moderate size predominantly fixed apical defect consistent with prior myocardial infarction, no evidence of a significant degree of reversible ischemia * No heparin gtt due to chronic thrombocytopenia * Conservative medical mgmt recommended * Continue daily bASA * Not on statin due to liver disease * Continue Coreg and increase to 6.25mg BID as BP permits * Continue Imdur 60mg daily * Continue Ranexa 500mg BID (may increase if needed) H/o Provoked PE (02/2020) * S/p biliary stent, was taken off Eliquis 06/09/2020 given chronic thrombocytopenia and liver disease * CTA chest 05/27/2020 @ [facility] revealed resolution of PE ESRD on HD * Nephrology following DM2 * Mgmt per Primary Liver Cirrhosis // YOUSIF * S/p TIPS 2013 Chronic Pancytopenia H/o MDS * S/p chemo 2014 PFO * Via GENO 06/2020 H/o MV Endocarditis with Septic Emboli (2017) H/o Subclavian Steal Syndrome Chronically Prolonged QTc * On Remeron as an outpatient * 501ms on ECG this admission (no change from previous) Plan: Patient found to be severely anemic this AM with Hgb of 6.2 and 1 unit PRBCs has been ordered for patient. Her chest pain is reproducible with palpation and recent cardiac cath shows patent grafts.Chest pain is not likely of cardiac origin. Will see patient as needed over weekend Pt seen in conjunction with Dr. Puckett, who agrees with the assessment and plan of care. - Patient Problems (1) Anemia Current Visit: Yes Status: Acute (2) AKANKSHA (acute kidney injury) Current Visit: Yes Status: Acute (3) Chest pain Current Visit: Yes Status: Acute (4) DVT prophylaxis Current Visit: Yes Status: Acute (5) Diastolic CHF Current Visit: Yes Status: Acute Qualifiers: Heart failure chronicity: acute Qualified Code(s): I50.31 - Acute diastolic (congestive) heart failure (6) NSTEMI (non-ST elevated myocardial infarction) Current Visit: Yes Status: Acute (7) CAD (coronary artery disease) Current Visit: Yes Status: Chronic Qualifiers: Coronary Disease-Associated Artery/Lesion type: [place] artery [place] vs. transplanted heart: [place] heart (8) DM2 (diabetes mellitus, type 2) Current Visit: Yes Status: Chronic (9) ESRD on hemodialysis Current Visit: Yes Status: Chronic (10) H/O: CVA (cerebrovascular accident) Current Visit: Yes Status: Chronic (11) History of pulmonary embolism Current Visit: Yes Status: Chronic (12) Liver cirrhosis Current Visit: Yes Status: Chronic (13) Pancytopenia Current Visit: Yes Status: Chronic (14) S/P CABG x 3 Current Visit: Yes Status: Chronic (15) Stented coronary artery Current Visit: Yes Status: Chronic Subjective Date of service: 11/18/20 Principal diagnosis: angina Interval history: Patient sitting in bed. Reports not feeling well and wants pain medicine Sinus 65 with no events on monitor Objective Vital Signs Temp Pulse Resp Resp BP Pulse Ox 11/18/20 11:41 97.8 F 66 18 129/57 100 11/18/20 11:15 110/87 11/18/20 10:00 72 11/18/20 09:09 98.2 F 71 18 110/87 99 11/18/20 04:12 98.6 F 66 18 127/54 100 11/18/20 02:56 98 11/18/20 02:46 67 11/18/20 02:34 20 11/17/20 23:33 98.6 F 70 18 119/46 100 11/17/20 21:40 69 20 118/44 100 11/17/20 19:01 72 20 127/45 100 11/17/20 18:34 97.9 F 68 16 109/36 96 - Physical Examination General: No Apparent Distress HEENT: Positive: PERRL Neck: Positive: neck supple Cardiac: Positive: Reg Rate and Rhythm Lungs: Positive: Normal Breath Sounds Neuro: Positive: Grossly Intact Abdomen: Positive: Soft Skin: Positive: Clear Musculoskeletal: No Pain Extremities: Present: upper extr. pulses, lower extr. pulses. Absent: edema - Labs and Meds CBC 11/18/20 Range/Units 05:50 WBC 2.2 L (4.5-11.0) K/mm3 RBC 1.74 L (3.65-5.03) M/mm3 Hgb 6.2 L (10.1-14.3) gm/dl Hct 17.9 L* (30.3-42.9) % Plt Count 64 L (140-440) K/mm3 Comprehensive Metabolic Panel 11/18/20 Range/Units 05:50 Sodium 137 (137-145) mmol/L Potassium 3.9 (3.6-5.0) mmol/L Chloride 96.2 L (98-107) mmol/L Carbon Dioxide 31 H (22-30) mmol/L BUN 41 H (7-17) mg/dL Creatinine 5.4 H D (0.6-1.2) mg/dL Glucose 140 H (65-100) mg/dL Calcium 8.5 (8.4-10.2) mg/dL - Imaging and Cardiology EKG: report reviewed, image reviewed Echo: report reviewed (03/04/2020 - EF 55-60%, grade 2 diastolic dysfxn) Cardiac cath: report reviewed (07/20/2020 revealed patent LM, 60% prox LAD, 100% mid LAD stent, patent LUIS-LAD less than 2mm, patent prox Cfx, 80% prox OM1 small caliber, 100% mid Cfx, patent SVG-OM feeding small caliber OM2, 100% prox RCA stent, patent SVG-PDA feeding small patent PDA and PLV, normal LV fxn) - Telemetry EKG Rhythm: Sinus Rhythm - EKG Sinus rhythms and dysrhythmias: sinus rhythm Repolarization changes or abnormalities: nonspecific abnormality, ST segment, and/or T wave
[2020-11-18 15:32] LABS: Hepatitis C Virus Antibody Non-Reactive (NonReactive)
[2020-11-18 15:43] LABS: Hepatitis B Surface Antigen Nonreactive (Negative)
--- NOTE | 2020-11-18 16:37 | Progress Note ---
Assessment and Plan - Patient Problems (1) NSTEMI (non-ST elevated myocardial infarction) Current Visit: Yes Status: Acute Plan to address problem: Troponins are elevated in the setting of end-stage renal disease Will defer to cardiology regarding Stress test versus cardiac cath (2) Angina at rest Current Visit: Yes Status: Acute Plan to address problem: Patient is very anemic Hemoglobin of 6.3 Transfuse 1 to 2 units of packed red blood cells (3) ESRD on hemodialysis Current Visit: Yes Status: Chronic Plan to address problem: Continue hemodialysis as per schedule (4) Diastolic CHF Current Visit: Yes Status: Acute Qualifiers: Heart failure chronicity: acute Qualified Code(s): I50.31 - Acute diastolic (congestive) heart failure Plan to address problem: Strict I/O, monitor urine output every shift, daily weight, afterload reduction, blood pressure control, supplemental oxygen, pulse oximetry, cardiology team consulted. (5) DVT prophylaxis Current Visit: Yes Status: Acute Plan to address problem: SCDs bilateral lower extremities while in bed (6) Advance care planning Current Visit: Yes Status: Acute Plan to address problem: Disease education conducted, care plan discussed, diagnosis discussed, prognosis discussed, patient is full code, patient knowledges understanding and agreement with care plan, +30 minutes. Subjective Date of service: 11/18/20 Principal diagnosis: angina Interval history: 64 YO Female with CVA on Antiplatelet therapy, ESRD on HD(T,R,Sa), Cirrhosis, Chronic Thrombocytopenia, CAD S/P CABG, HTN, PE not taking therapeutic anticoagulation, DM, Obesity Hypoventilation Syndrome, HLD presents to ED for evaluation. Patient reports "my chest hurts". Patient states that she experienced a sudden onset of chest pain while at dialysis. Patient pain is 10/10, constant, crushing in nature, feels like "an elephant sitting on my chest", associated with shortness of breath. EMS was notified and upon arrival the patient was found to be in distress and subsequently transported to [facility] for further care and evaluation of the aforementioned symptoms. The patient was seen and evaluated in the emergency department. All lab and imaging studies reviewed. Patient found to have clinical symptoms as well as lab findings consistent with non-ST elevation CT, angina at rest, diastolic congestive heart failure, acute kidney injury. Cardiology team consulted in ED. Patient admitted to telemetry and initiated on ACS protocol. Patient denies fever, chills, palpitation, productive cough, skin rash, recent ill contacts, or known exposure to COVID-19. Patient has been fully vaccinated against COVID-19. Prior admission on 12/27/2015 reviewed. All medication listed at time of admission has been reconciled. Advanced care planning conducted in ED. 11/18/2020 Hemoglobin is 6.3 Patient to get 1 unit of blood transfusion Patient is otherwise comfortable and resting Objective - Constitutional Vitals: Vital Signs - 12hr 11/18/20 11/18/20 11/18/20 09:09 10:00 11:15 Temperature 98.2 F Pulse Rate 71 72 Respiratory 18 Rate Blood Pressure 110/87 110/87 O2 Sat by Pulse 99 97 Oximetry 11/18/20 11:41 Temperature 97.8 F Pulse Rate 66 Respiratory 18 Rate Blood Pressure 129/57 O2 Sat by Pulse 100 Oximetry General appearance: Present: no acute distress, well-nourished - EENT Eyes: PERRL, EOM intact ENT: hearing intact, clear oral mucosa Ears: bilateral: normal - Neck Neck: supple, normal ROM - Respiratory Respiratory effort: normal Respiratory: bilateral: CTA - Breasts Breasts: normal - Cardiovascular Heart rate: 78 Rhythm: regular Heart Sounds: Present: S1 & S2. Absent: gallop, rub Extremities: pulses intact, No edema, normal color, Full ROM - Gastrointestinal General gastrointestinal: Present: soft, non-tender, non-distended, normal bowel sounds - Genitourinary Female genitourinary: normal - Integumentary Integumentary: clear, warm, dry - Musculoskeletal Musculoskeletal: 1, strength equal bilaterally - Neurologic Neurologic: moves all extremities - Psychiatric Psychiatric: memory intact, appropriate mood/affect, intact judgment & insight - Labs CBC & Chem 7: 11/18/20 05:50 11/18/20 05:50 Labs: Abnormal lab results 11/17/20 11/17/20 11/17/20 Range/Units 17:52 20:37 21:57 WBC (4.5-11.0) K/mm3 RBC (3.65-5.03) M/mm3 Hgb (10.1-14.3) gm/dl Hct (30.3-42.9) % MCV (79-97) fl MCH (28-32) pg MCHC (30-34) % RDW (13.2-15.2) % Plt Count (140-440) K/mm3 Seg Neutrophils # Man (1.8-7.7) K/mm3 Lymphocytes # (Manual) (1.2-5.4) K/mm3 Chloride (98-107) mmol/L Carbon Dioxide (22-30) mmol/L BUN (7-17) mg/dL Creatinine (0.6-1.2) mg/dL Glucose (65-100) mg/dL POC Glucose 133 H 237 H (70-105) mg/dL Troponin T 0.249 H* (0.00-0.029) ng/mL Crossmatch 11/17/20 11/18/20 11/18/20 Range/Units 23:36 05:50 05:50 WBC 2.2 L (4.5-11.0) K/mm3 RBC 1.74 L (3.65-5.03) M/mm3 Hgb 6.2 L (10.1-14.3) gm/dl Hct 17.9 L* (30.3-42.9) % MCV 103 H (79-97) fl MCH 36 H (28-32) pg MCHC 35 H (30-34) % RDW 15.7 H (13.2-15.2) % Plt Count 64 L (140-440) K/mm3 Seg Neutrophils # Man 1.5 L (1.8-7.7) K/mm3 Lymphocytes # (Manual) 0.5 L (1.2-5.4) K/mm3 Chloride 96.2 L (98-107) mmol/L Carbon Dioxide 31 H (22-30) mmol/L BUN 41 H (7-17) mg/dL Creatinine 5.4 H D (0.6-1.2) mg/dL Glucose 140 H (65-100) mg/dL POC Glucose (70-105) mg/dL Troponin T 0.264 H* (0.00-0.029) ng/mL Crossmatch 11/18/20 11/18/20 11/18/20 Range/Units 06:05 11:35 13:50 WBC (4.5-11.0) K/mm3 RBC (3.65-5.03) M/mm3 Hgb (10.1-14.3) gm/dl Hct (30.3-42.9) % MCV (79-97) fl MCH (28-32) pg MCHC (30-34) % RDW (13.2-15.2) % Plt Count (140-440) K/mm3 Seg Neutrophils # Man (1.8-7.7) K/mm3 Lymphocytes # (Manual) (1.2-5.4) K/mm3 Chloride (98-107) mmol/L Carbon Dioxide (22-30) mmol/L BUN (7-17) mg/dL Creatinine (0.6-1.2) mg/dL Glucose (65-100) mg/dL POC Glucose 134 H 179 H (70-105) mg/dL Troponin T (0.00-0.029) ng/mL Crossmatch See Detail HEART Score - HEART Score Troponin: Troponin T 0.264 ng/mL (0.00-0.029) H* 11/17/20 23:36
[2020-11-18] MEDS: GABAPENTIN 300 MG CAP PO SCH (17:43)
[2020-11-19] MEDS: INSULIN LISPRO 100 UNIT/ML SUB-Q SCH ×3 (01:40→12:04)
[2020-11-19] MEDS: ASPIRIN 81 MG TAB CHEW PO SCH (09:34)
[2020-11-19] MEDS: RIFAXIMIN 550 MG TAB PO SCH (09:34)
[2020-11-19] MEDS: MULTIVITAMINS ,THERAPEUTIC TAB PO SCH (09:34)
[2020-11-19] MEDS: RANOLAZINE ER 500 MG TAB 12HR PO SCH (09:35)
[2020-11-19] MEDS: CETIRIZINE 10 MG TAB PO SCH (09:35)
[2020-11-19] MEDS: PANTOPRAZOLE 40 MG TAB PO SCH (09:35)
[2020-11-19] MEDS: carvediloL 12.5 MG TAB PO SCH (09:35)
[2020-11-19] MEDS ORDERED: POTASSIUM CHLORIDE ER 10 MEQ TAB PO SCH (10:00)
[2020-11-19 10:56] LABS: Basophils % (Auto) 1.3 % (0.0-1.8); Eosinophils # (Auto) 0.2 K/mm3 (0.0-0.4); Eosinophils % (Auto) 5.6 % (0.0-4.3); Hematocrit 21.6 % (30.3-42.9); Hemoglobin 7.6 gm/dl (10.1-14.3); Lymphocytes % (Auto) 36.9 % (13.4-35.0); Mean Corpuscular HGB Conc 36 % (30-34); Mean Corpuscular Volume 98 fl (79-97); Monocytes # (Auto) 0.4 K/mm3 (0.0-0.8); Monocytes % (Auto) 12.5 % (0.0-7.3); Platelet Count 60 K/mm3 (140-440); Red Cell Distribution Width 18.1 % (13.2-15.2)
[2020-11-19] MEDS: TORSEMIDE 10 MG TAB PO SCH (10:57)
[2020-11-19] MEDS: SPIRONOLACTONE 50 MG TAB PO SCH (10:57)
[2020-11-19] MEDS: amLODIPine 10 MG TAB PO SCH (10:57)
[2020-11-19] MEDS: hydrALAZINE 25 MG TAB PO SCH (10:57)
[2020-11-19 11:09] LABS: Calcium 8.6 mg/dL (8.4-10.2)
--- NOTE | 2020-11-19 12:06 | Progress Note ---
Assessment and Plan Assessment: NSTEMI Angina at rest ESRD on HD Diastolic CHF CAD s/p CABG HTN Chronic Thrombocytopenia Liver Cirrhosis Hx of CVA Anemia Plan: HD today for UF and clearance Assess need for HD on daily basis Renally dose meds Strict I&O This pt undergoes OP HD at [facility] Renal plan reviewed by Dr Lilly Subjective Date of service: 11/19/20 Principal diagnosis: angina Interval history: Pt seen in HD Unit, states she has less shortness of breath today, denies chest pain right now, no acute distress Objective - Vital Signs Vital signs: Vital Signs - 12hr 11/19/20 11/19/20 11/19/20 03:37 08:24 08:56 Temperature 98.7 F 97.5 F L Pulse Rate 61 58 L Respiratory 18 18 Rate Blood Pressure 125/54 133/50 O2 Sat by Pulse 94 96 98 Oximetry 11/19/20 11/19/20 10:19 11:01 Temperature Pulse Rate 62 Respiratory 18 Rate Blood Pressure O2 Sat by Pulse 98 Oximetry - General Appearance General appearance: well-developed EENT: ATNC Neck: supple Respiratory: Present: Decreased Breath Sounds Cardiology: regular, S1S2 Gastrointestinal: normoactive bowel sounds, no tenderness Integumentary: warm and dry Neurologic: alert and oriented x3 Musculoskeletal: other (trace edema to BLE) Psychiatric: mood/affect appropriate - Lab 11/19/20 10:30 11/19/20 10:30 Most recent lab results Calcium 8.6 mg/dL (8.4-10.2) 11/19/20 10:30 Medications & Allergies - Medications Allergies/Adverse Reactions: Allergies codeine Allergy (Verified 11/17/20 10:33) Hives Home Medications: Home Medications Medication Instructions Recorded Confirmed Last Taken Type Aspirin [Aspirin BABY CHEW TAB] 162 mg PO QDAY 12/27/15 12/27/15 Unknown History AtorvaSTATin [Lipitor] 20 mg PO QHS 12/27/15 12/27/15 Unknown History Cetirizine HCl [All Day Allergy] 10 mg PO QDAY 12/27/15 12/27/15 Unknown History Etanercept [Enbrel] 50 mg SQ QWEEK 12/27/15 12/27/15 Unknown History Glucosam/Chondr/Collagn/Hyalur 1 each PO QDAY 12/27/15 12/27/15 Unknown History [Glucosamine & Chondroitin Cap] Insulin Aspart Prot/Aspart(Nf) 0 units SQ ACHS 12/27/15 12/27/15 Unknown History [NovoLOG Mix 70/30 VIAL] Insulin Glargine [Lantus VIAL] 20 units SQ QHS 12/27/15 12/27/15 Unknown History Mirtazapine [Remeron 15mg TAB] 15 mg PO QHS 12/27/15 12/27/15 Unknown History Multivitamin Tab [Multiple Vitamin 1 each PO QDAY 12/27/15 12/27/15 Unknown History TAB (Theragran)] Preston-3S/Dha/Epa/Fish Oil [Fish 1 each PO QDAY 12/27/15 12/27/15 Unknown History Oil 1,200 mg Softgel] Omeprazole 40 mg PO QDAY 12/27/15 12/27/15 Unknown History Potassium Chloride [K-Dur] 10 meq PO Q48HR 12/27/15 12/27/15 Unknown History Rifaximin [Xifaxan] 1,100 mg PO QDAY 12/27/15 12/27/15 Unknown History Spironolactone [Aldactone] 50 mg PO BID 12/27/15 12/27/15 Unknown History Torsemide [Demadex] 20 mg PO QDAY 12/27/15 12/27/15 Unknown History amLODIPine 10 mg PO DAILY 12/27/15 12/27/15 Unknown History carvediloL [Coreg] 12.5 mg PO BID 12/27/15 12/27/15 Unknown History hydrALAZINE [Apresoline TAB] 50 mg PO QDAY 12/27/15 12/27/15 Unknown History Gabapentin 300 mg PO QPM #30 cap 12/30/15 Unknown Rx Active Medications: Generic Name Dose Route Start Last Admin Trade Name Freq PRN Reason Stop Dose Admin Acetaminophen 650 mg 11/17/20 14:40 Acetaminophen 325 Mg Tab PO Q4H PRN Pain MILD(1-3)/Fever >100.5/SOLO Albuterol 2.5 mg 11/17/20 14:40 Albuterol 2.5 Mg/3 Ml Nebu IH Q4HRT PRN Shortness Of Breath Amlodipine Besylate 10 mg 11/18/20 10:00 11/19/20 10:57 Amlodipine 10 Mg Tab PO Not Given DAILY EUSEBIO Aspirin 162 mg 11/18/20 10:00 11/19/20 09:34 Aspirin 81 Mg Tab Chew PO 162 mg QDAY EUSEBIO Administration Atorvastatin Calcium 20 mg 11/17/20 22:00 11/18/20 22:09 Atorvastatin 20 Mg Tab PO Not Given QHS EUSEBIO Carvedilol 12.5 mg 11/17/20 22:00 11/19/20 09:35 Carvedilol 12.5 Mg Tab PO 12.5 mg BID EUSEBIO Administration Cetirizine HCl 10 mg 11/18/20 10:00 11/19/20 09:35 Cetirizine 10 Mg Tab PO 10 mg DAILY EUSEBIO Administration Dextrose 50 ml 11/17/20 19:10 Dextrose 50% In Water (25gm) 50 Ml Syringe IV Q30MIN PRN Hypoglycemia Protocol Gabapentin 300 mg 11/17/20 18:00 11/18/20 17:43 Gabapentin 300 Mg Cap PO 300 mg QPM EUSEBIO Administration Hydralazine HCl 50 mg 11/18/20 10:00 11/19/20 10:57 Hydralazine 25 Mg Tab PO Not Given QDAY EUSEBIO Hydromorphone HCl 0.5 mg 11/17/20 14:40 11/17/20 21:44 Hydromorphone 1 Mg/1 Ml Inj IV 0.5 mg Q23H PRN Administration Pain , Severe (7-10) Insulin Human Lispro 0 unit 11/18/20 00:00 11/19/20 05:50 Insulin Lispro 100 Unit/Ml SUB-Q Not Given Q6HR [facility] Protocol Isosorbide Mononitrate 60 mg 11/17/20 16:00 11/19/20 09:34 Isosorbide Mononitrate Er 60 Mg Tab PO 60 mg QDAY [facility] Administration Mirtazapine 15 mg 11/17/20 22:00 11/18/20 22:09 Mirtazapine 15 Mg Tab PO 15 mg QHS [facility] Administration Multivitamins 1 each 11/18/20 10:00 11/19/20 09:34 Multivitamins ,Therapeutic Tab PO 1 each QDAY EUSEBIO Administration Nitroglycerin 0.4 mg 11/17/20 11:28 11/17/20 11:49 Nitroglycerin 0.4 Mg Tab Subl SL 0.4 mg .Q5MIN PRN Administration Chest Pain Ondansetron HCl 4 mg 11/17/20 14:40 Ondansetron 4 Mg/2 Ml Inj IV Q8H PRN Nausea And Vomiting Oxycodone/Acetaminophen 1 tab 11/17/20 14:40 11/18/20 12:51 Oxycodone /Acetaminophen 5-325mg Tab PO 1 tab Q16H PRN Administration Pain, Moderate (4-6) Pantoprazole Sodium 40 mg 11/18/20 10:00 11/19/20 09:35 Pantoprazole 40 Mg Tab PO 40 mg DAILY EUSEBIO Administration Potassium Chloride 10 meq 11/19/20 10:00 11/19/20 10:58 Potassium Chloride Er 10 Meq Tab PO Not Given Q48HR EUSEBIO Ranolazine 500 mg 11/17/20 22:00 11/19/20 09:35 Ranolazine Er 500 Mg Tab 12hr PO 500 mg BID EUSEBIO Administration Rifaximin 550 mg 11/18/20 12:00 11/19/20 09:34 Rifaximin 550 Mg Tab PO 550 mg BID EUSEBIO Administration Sodium Chloride 10 ml 11/17/20 22:00 11/19/20 09:36 Sodium Chloride 0.9% 10 Ml Flush Syringe IV 10 ml BID EUSEBIO Administration Sodium Chloride 10 ml 11/17/20 14:40 Sodium Chloride 0.9% 10 Ml Flush Syringe IV PRN PRN LINE FLUSH Spironolactone 50 mg 11/17/20 22:00 11/19/20 10:57 Spironolactone 50 Mg Tab PO Not Given BID EUSEBIO Torsemide 20 mg 11/18/20 10:00 11/19/20 10:57 Torsemide 10 Mg Tab PO Not Given QDAY EUSEBIO Tramadol HCl 50 mg 11/17/20 14:40 Tramadol 50 Mg Tab PO Q6H PRN Pain, Moderate (4-6)
--- NOTE | 2020-11-19 14:47 | Discharge Summary ---
Providers - Providers Date of Admission: 11/17/20 14:41 Date of discharge: 11/19/20 Attending physician: PAKO SANTOS 11/17/20 Consult to Cardiac Rehabilitation [CONS] Routine Reason For Exam: Phase I 11/17/20 19:09 Consult to Physician [CONS] Routine Comment: Consulting Provider: JEWEL ANDRE Physician Instructions: Reason For Exam: esrd Primary care physician: E COMMERCE STRATEGIST Hospitalization Condition: Stable Hospital course: The patient is a 64-year-old woman with end-stage renal disease on hemodialysis, history of coronary artery disease underwent three-vessel coronary artery bypass, admitted to the hospital at this time with complaints of chest pain which occurred at rest, and during a dialysis treatment. She has had no exertional chest pain or fatigue in recent weeks. In the ER she noted to have severe pancytopenia with leukopenia WBC 2.2, severe anemia with a hematocrit as low as 17, and thrombocytopenia with a platelet count of 65,000. Her creatinine is 5.4, consistent with her end-stage renal disease. In this milieu, troponin levels were at 0.25, unchanged on 3 serial measurements. EKG was normal sinus rhythm, left ventricle hypertrophy and repolarization abnormalities of LVH. Chest x-ray shows sternal wires consistent with prior thoracotomy, otherwise normal-sized cardiac silhouette and clear lungs. Patient found to be severely anemic with Hgb of 6.2 and 1 unit PRBCs has been ordered for patient. Her chest pain is reproducible with palpation and recent cardiac cath shows patent grafts. per cardiology her chest pain is not likely of cardiac origin. She was recommended to followup outpt. h/h remained stable following transfusion, she was then discharge home with outpt followup. Disposition: HOME HEALTH CARE SERVICE Final Discharge Diagnosis (Prints w/discharge instructions): NSTEMI type 2. Chest pain likely due to costochondritis. ESRD on HD. Diastolic CHF. CAD s/p CABG. HTN. Chronic Thrombocytopenia. Liver Cirrhosis. Hx of CVA. Anemia of chronic disease status post 1 unit packed RBC transfusion Time spent for discharge: 34 minutes Core Measure Documentation - Palliative Care Palliative Care/ Comfort Measures: Not Applicable - Core Measures Any of the following diagnoses?: none Exam - Physical Exam Narrative exam: GENERAL: well-developed and elderly female lying on bed appeared to be in no discomfort. HEENT: Normocephalic. Atraumatic. No conjunctival congestion or icterus. Patient has moist mucous membranes. NECK: Supple. Trachea midline. CHEST/LUNGS: Clear to auscultated bilaterally, breathing nonlabored. No wheezes crackles or rhonchi. HEART/CARDIOVASCULAR: Regular in rate and rhythm. S1 and S2 positive. ABDOMEN: Abdomen is soft, nontender. Patient has normal bowel sounds. SKIN: There is no rash. Warm and dry. NEURO: No focal motor deficit. Follows command. MUSCULOSKELETAL: No joint effusion or tenderness. EXTRIMITY: No edema, no cyanosis or clubbing. PSYCH: Cooperative. - Constitutional Vitals: Temp Pulse Resp BP Pulse Ox 97.5 F L 55 L 18 116/53 94 11/19/20 08:24 11/19/20 14:24 11/19/20 11:01 11/19/20 14:24 11/19/20 11:45 Plan Activity: advance as tolerated Weight Bearing Status: Non-Weight Bearing Diet: renal Additional Instructions: Follow-up with cardiology as outpatient. Follow-up with GI as outpatient for possible colonoscopy and EGD. Repeat H&H/CBC in 1 week Follow up with: PRIMARY CAREMD [Primary Care Provider] - 7 Days
[2020-11-19 19:31] VITALS: BP 139/52
--- NOTE | 2020-11-21 14:31 | Electrocardiograph Report ---
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
--- NOTE | 2020-11-22 10:53 | Electrocardiograph Report ---
[facility] Test Date: 2020-11-18 Test Time: 10:07:41 Pat Name: MILDRED GAYTAN Department: Room: A452 1 Gender: F Ware Tester: BOBBI : 1955 Requested By: ILDA GARNETT Order Number: [id number] Reading MD: Rohan Theodore Measurements Intervals [place] Rate: 63 P: 21 [place]: 192 QRS: -33 QRSD: 106 T: 149 QT: 462 QTc: 473 Interpretive Statements Sinus rhythm Consider old anterior infarct Left ventricular hypertrophy with repolarization changes of LVH Compared to ECG 11/17/2020 10:34:54 No significant change Electronically Signed On 11-22-2020 10:52:49 EDT by Rohan Theodore
== END 2020-11-19 17:55 | disposition home health service (06) | DRG 205 ==
LOC: ED 10:17 → 4A 14:41
PROVIDERS: ADMIT Internal Medicine; ATTEND Internal Medicine
PROC: 30233N1 Transfusion of Nonautologous Red Blood Cells into Peripheral Vein, Percutaneous Approach (ICD-10-PCS; principal; 2020-11-18)
PROC: 5A1D70Z Performance of Urinary Filtration, Intermittent, Less than 6 Hours Per Day (ICD-10-PCS; 2020-11-19)
DX: M94.0 Chondrocostal junction syndrome [Tietze] (principal); I21.A1 Myocardial infarction type 2; N18.6 End stage renal disease; I50.23 Acute on chronic systolic (congestive) heart failure; I13.2 Hypertensive heart and chronic kidney disease with heart failure and with stage 5 chronic kidney disease, or end stage renal disease; D61.818 Other pancytopenia; I20.8 Other forms of angina pectoris; Z79.82 Long term (current) use of aspirin; E11.22 Type 2 diabetes mellitus with diabetic chronic kidney disease; Z79.4 Long term (current) use of insulin; Z99.2 Dependence on renal dialysis; Z82.49 Family history of ischemic heart disease and other diseases of the circulatory system; K74.60 Unspecified cirrhosis of liver; Z83.3 Family history of diabetes mellitus; Z82.3 Family history of stroke
CPT/HCPCS: 36415; 71046; 80048; 80061; 80074; 80076; 82962; 83690; 83880; 84484; 85007; 85025; 85027; 86850; 86900; 86901; 86920; 90732; 93005; 94760; G0378; J1170; J1815; J2405; J7040; P9016